=== PATIENT | female | born 1925 | race Caucasian/White ===

== ENCOUNTER 2016-05-27 06:53 | Emergency (ER) | payer OTHER ==
[2016-05-27 08:20] LABS: URINE MICRO REVIEW NEEDED? NO; URINE SOURCE CLEAN CATCH
[2016-05-27 08:32] LABS: BILIRUBIN URINE NEGATIVE (NEGATIVE); BLOOD URINE NEGATIVE (NEGATIVE); COLOR YELLOW; GLUCOSE URINE NEGATIVE (NEGATIVE); LEUKOCYTES URINE LARGE (NEGATIVE); NITRITE URINE NEGATIVE (NEGATIVE); PROTEIN URINE TRACE mg/dL (NEGATIVE); SP GRAVITY URINE 1.015; TURBIDITY URINE CLEAR (CLEAR); UR EPITHELIAL CELLS <10 /HPF (<10); URINE BACTERIA 4+ /HPF; URINE CULTURE NEEDED? YES; URINE RBC <10 /HPF (<10); UROBILINOGEN URINE NORMAL (NORMAL)
--- NOTE | 2016-05-27 10:25 | PROVIDER DOCUMENTATION ---
HPI-Female /OB/Breast - General Chief Complaint: General Adult Stated Complaint: UTI SX/LEG PAIN Time Seen by Provider: 05/27/16 07:30 Allergies/Adverse Reactions: Patient Allergies Allergy/AdvReac Type Severity Reaction Status Date / Time zolpidem tartrate * Allergy ANAPHYLAXIS Verified 05/27/16 08:23 [From Ambien] Home Medications: Home Medication List Medication Instructions Recorded Confirmed Last Taken Type Diltiazem HCl [Cardizem Cd] 180 mg PO DAILY 09/30/13 05/27/16 05/21/16 08:00 History Levothyroxine [Synthroid] 100 mcg PO DAILY 09/30/13 05/27/16 05/27/16 06:30 History Temazepam 15 mg PO HS 11/09/15 05/27/16 05/26/16 22:00 History Amoxicillin 500 mg PO TID #30 capsule 05/27/16 Unknown Rx Review of Systems - Adult - REVIEW OF SYSTEMS - ADULT Constitutional: reports: no symptoms reported Past History - Adult - PAST MEDICAL HISTORY-ADULT Review of Records: reports: Old Records Reviewed, Nursing Assessment Review Major Childhood Illnesses: reports: denies history Cardiovascular: reports: blood clots, HTN Respiratory: reports: denies history Gastrointestinal: reports: denies history Obstetrical/Gynecological: reports: other Genitourinary: reports: denies history Musculoskeletal: reports: denies history Neurological: reports: CVA Endocrine/Immune: reports: cancer (breast), thyroid disorder Other Conditions: reports: other cancer (breast cancer) - PRIOR SURGERIES/PROCEDURES Surgical/Procedure History: reports: cholecystectomy, orthopedic (extremity) ( total hip replacement), other (masectomy) - PRIOR HOSPITALIZATIONS Prior Hospitalizations: reports: none - IMMUNIZATION STATUS Childhood Immunizations: See Nurse Assessment Flu Vaccine: See Nurse Assessment - FAMILY HISTORY Family History: reviewed, not pertinent Physical Exam-General - CONSTITUTIONAL General Appearance: appears well, alert, no apparent distress - EYES Eyes: PERRL/EOMI - HEAD, EARS, NOSE, MOUTH & THROAT HENMT: normocephalic/atraumatic, moist mucous membranes - NECK Neck: non-tender, full range of motion - RESPIRATORY Respiratory: chest non-tender - CARDIOVASCULAR Cardiovascular: normal peripheral pulses, regular rate, rhythm - GASTROINTESTINAL (ABDOMEN) Abdominal Exam: normal bowel sounds, non tender - GENITOURINARY Rectal Exam: deferred - MUSCULOSKELETAL Back Exam: normal inspection, no CVA tenderness Extremity: normal range of motion, non-tender - PSYCHIATRIC Psych/Mental Status: normal mood/affect, normal thought content Departure - Departure Time of Disposition Order: 10:20 DIAGNOSIS: 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
[2016-05-27 11:20] VITALS: BP 155/73
== END 2016-05-27 11:21 | disposition home or self-care (01) ==
LOC: ED 06:53
DX: N30.00 Acute cystitis without hematuria (principal); M19.90 Unspecified osteoarthritis, unspecified site; M79.605 Pain in left leg; R35.8 Other polyuria; I10 Essential (primary) hypertension; E07.9 Disorder of thyroid, unspecified; Z79.899 Other long term (current) drug therapy; Z86.718 Personal history of other venous thrombosis and embolism; Z86.73 Personal history of transient ischemic attack (TIA), and cerebral infarction without residual deficits; Z85.3 Personal history of malignant neoplasm of breast; Z96.649 Presence of unspecified artificial hip joint; Z90.10 Acquired absence of unspecified breast and nipple
CPT/HCPCS: 81001; 85379; 87088